=== PATIENT | female | born 1970 | race African-American/Black ===

== ENCOUNTER 2021-05-24 09:21 | Outpatient (CLI) | payer OTHER, SELFPAY ==
--- NOTE | ~2021-05-24 | MR_ITS ---
EXAMINATION: MR knee LT wo con DATE: 05/24/2021 10:15 INDICATION: Left knee pain. TECHNIQUE: Magnetic resonance imaging (MRI) of the left knee was performed without intravenous contra st. Sequences included axial PD-weighted FS FSE, coronal PD-weighted FSE and PD-weighted FS FSE, sagi ttal PD-weighted FSE, and sagittal T2-weighted FS FSE. COMPARISON: None. FINDINGS: Medial compartment: Medial meniscus is normal. There is deep partial thickness cartilage loss of femoral condyle involvin g the posterior articular surface. There is cartilage surface irregularity of tibial condyle. Lateral compartment: The lateral meniscus is normal. There is cartilage surface irregularity of tibial condyle. There is s hallow partial-thickness cartilage loss of femoral condyle involving the central articular surface. Patellofemoral compartment: There is deep partial thickness cartilage loss of patellar medial and lateral facets and median ridge with mild subchondral edema-like marrow signal intensity. There is deep partial thickness cartilage loss of distal central trochlea. Ligaments and tendons: The anterior and posterior cruciate ligaments are normal. There are changes of prior sprains of media l collateral ligament and fibular collateral ligament characterized by thickening and increased signa l intensity proximally. There is mild patellar tendinopathy. Fluid: There is a moderate-sized knee joint effusion. There is a ruptured Taylor's cyst with large distributi on of edema and fluid in the soft tissues. IMPRESSION: 1. Moderate chondrosis of medial and patellofemoral compartments and mild chondrosis of lateral maryann rtment. 2. Moderate-sized knee joint effusion. 3. Ruptured Taylor's cyst. Reviewed, dictated and finalized at location A. [employer] IMPRESSION: 1. Moderate chondrosis of medial and patellofemoral compartments and mild chond rosis of lateral compartment. 2. Moderate-sized knee joint effusion. 3. Ruptured Taylor's cyst.
== END 2021-05-24 09:22 | disposition home or self-care (01) ==
PROVIDERS: PCP Nurse Practitioner Family; Visit Provider Orthopaedic Surgery
DX: M25.562 Pain in left knee (principal); M22.2X2 Patellofemoral disorders, left knee; M25.462 Effusion, left knee; M66.0 Rupture of popliteal cyst
CPT/HCPCS: 73721